=== PATIENT | female | born 1945 | race Two or more races ===

== ENCOUNTER 2021-03-15 08:44 | Outpatient (CLI) | payer OTHER ==
[~2021-03-15 08:44] MED LIST: DEPO-MEDROL40 MG/ML IM; NABUMETONE500 MG PO; XYLOCAINE-MP10 MG/ML IM
== END 2021-03-15 08:50 | disposition home or self-care (01) ==
LOC: RX STUDY 08:44
DX: K57.32 Diverticulitis of large intestine without perforation or abscess without bleeding (principal); Z93.2 Ileostomy status

== ENCOUNTER 2021-12-12 09:06 | Outpatient (CLI) | payer OTHER | END 2021-12-12 09:07 | disposition home or self-care (01) | LOC: RX STUDY 09:06 | DX: K30 Functional dyspepsia (principal) ==

== ENCOUNTER 2022-01-15 10:41 | Outpatient (CLI) | payer OTHER | END 2022-01-15 10:56 | disposition home or self-care (01) | LOC: MAMO-SONO 10:41 | PROVIDERS: ATTEND Internal Medicine | DX: N60.49 Mammary duct ectasia of unspecified breast (principal) ==

== ENCOUNTER 2022-01-17 09:24 | Outpatient (CLI) | payer OTHER | END 2022-01-17 09:25 | disposition home or self-care (01) | LOC: NUCLEAR 09:24 | PROVIDERS: ATTEND Internal Medicine | DX: M81.0 Age-related osteoporosis without current pathological fracture (principal) ==

== ENCOUNTER 2024-06-03 12:59 | Outpatient (CLI) | payer OTHER | END 2024-06-03 13:02 | disposition home or self-care (01) | LOC: NUCLEAR 12:59 | PROVIDERS: ATTEND Internal Medicine | DX: M81.0 Age-related osteoporosis without current pathological fracture (principal) ==